=== PATIENT | male | born 1975 | race African-American/Black ===

== ENCOUNTER 2016-08-16 02:04 | Emergency (ER) | payer SELFPAY ==
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
[2016-08-16 02:48] VITALS: BP 173/108
[2016-08-16] MEDS ORDERED: Morphine INJ* 4 MG/ML 1 ML SYRINGE IV ONE (02:52)
[2016-08-16] MEDS ORDERED: Ondansetron INJ* 2 MG/ML VIAL IV ONE (02:53)
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
== END 2016-08-16 02:55 | disposition short-term general hospital (02) ==
LOC: EDUNIT# → EDBD → ED 02:04 → EDBD 02:04 → ED 02:55
DX: S01.80XA Unspecified open wound of other part of head, initial encounter (principal); W33.01XA Accidental discharge of shotgun, initial encounter; Y93.9 Activity, unspecified; Y92.9 Unspecified place or not applicable; Y99.9 Unspecified external cause status
CPT/HCPCS: 70250; 71010; 96374; 96375; 99285; J2270; J2405

== ENCOUNTER 2018-11-11 09:16 | Emergency (ER) | payer OTHER ==
[2018-11-11] MEDS ORDERED: oxyCODONE/Acetamin 5/325 MG* TAB PO ONE (09:24)
[2018-11-11] MEDS ORDERED: Ketorolac INJ* 30 MG/ML 1 ML VIAL IM ONE (09:24)
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
[2018-11-11] MEDS ORDERED: Dexamethasone TAB* 4 MG PO ONE (10:40)
[2018-11-11] MEDS ORDERED: Cyclobenzaprine TAB* 10 MG PO ONE (10:41)
[2018-11-11 12:13] VITALS: BP 104/73
== END 2018-11-11 12:10 | disposition home or self-care (01) ==
LOC: ED 09:16
DX: M54.9 Dorsalgia, unspecified (principal); M51.36 Other intervertebral disc degeneration, lumbar region
CPT/HCPCS: 72131; 96372; 99283; A9270-GY; J1885; J8540